=== PATIENT | male | born 1935 | race Caucasian/White ===

== ENCOUNTER 2018-09-04 15:28 | Emergency (ER) | payer OTHER ==
[~2018-09-04] VITALS: Ht 175.3 cm; Wt 79.4 kg
[~2018-09-04 15:28] MED LIST: ATOR10 PO; DILT120 PO; DOXA2 PO; LISI20 PO; LISI5 PO; PRIM50 PO; SIMV5 PO
[2018-09-04] MEDS ORDERED: HYDCHL12.5 PO (15:39)
[2018-09-04] MEDS ORDERED: DOXA2 PO (15:40)
[2018-09-04] MEDS ORDERED: GLUC500 PO (15:40)
[2018-09-04] MEDS ORDERED: UBID10 (15:40)
[2018-09-04 16:22] LABS: BASOPHILS ABSOLUTE AUTO 0.04 K/mm3 (0.00-0.23); BASOPHILS PERCENT AUTO 1 % (0-2); EOSINOPHILS ABSOLUTE AUTO 0.19 K/mm3 (0.00-0.68); EOSINOPHILS PERCENT AUTO 4 % (0-6); Hematocrit 37.8 % (37.0-53.0); Hemoglobin 12.9 g/dL (13.5-17.5); IMMATURE GRAN ABSOLUTE AUTO 0.01 K/mm3 (0.00-0.10); IMMATURE GRAN PERCENT AUTO 0 % (0-1); LYMPHOCYTES ABSOLUTE AUTO 1.28 K/mm3 (0.84-5.20); LYMPHOCYTES PERCENT AUTO 27 % (21-46); MONOCYTES ABSOLUTE AUTO 0.46 K/mm3 (0.16-1.47); MONOCYTES PERCENT AUTO 10 % (4-13); Mean Corpuscular HGB 31.9 pg (26.0-34.0); Mean Corpuscular HGB Conc 34.1 g/dL (31.5-36.5); Mean Corpuscular Volume 94 fL (80-100); Mean Platelet Volume 9.9 fL (9.1-12.4); NEUTROPHILS ABSOLUTE AUTO 2.69 K/mm3 (1.96-9.15); NEUTROPHILS PERCENT AUTO 58 % (41-73); Platelet Count 175 K/mm3 (150-400); RDW Coefficient Variation 12.8 % (11.7-14.2); RDW Standard Deviation 43.7 fL (35.1-46.3); Red Blood Cell Count 4.04 M/mm3 (4.30-5.90); White Blood Cell Count 4.67 K/mm3 (4.00-11.30)
[2018-09-04 16:47] LABS: Alanine Aminotransfer (ALT/SGP 28 U/L (12-78); Albumin, Blood 3.9 g/dL (3.4-5.0); Albumin/Globulin Ratio 1.3 (0.8-1.8); Alk Phos 56 U/L (50-136); Anion Gap 6 mmol/L (6-16); Aspartate Aminotrans (AST/SGOT 23 U/L (12-37); Bilirubin, Total 0.4 mg/dL (0.1-1.0); Blood Urea Nitrogen 13 mg/dL (8-24); Bun/Creatinine Ratio 15.2 (12.0-20.0); CO2, Blood 31 mmol/L (21-32); Calcium, Blood 8.1 mg/dL (8.5-10.1); Chloride, Blood 101 mmol/L (98-108); Creatinine, Blood 0.86 mg/dL (0.60-1.20); Globulin, Blood 3.1 g/dL (2.2-4.0); Glomerular Filtration Rate >60 (60-); Glucose, Blood 95 mg/dL (70-99); Potassium, Blood 3.5 mmol/L (3.5-5.5); Sodium, Blood 138 mmol/L (136-145)
[2018-09-04 16:53] LABS: Troponin I <0.015 ng/mL (0.000-0.040)
== END 2018-09-04 18:51 | disposition home or self-care (01) ==
LOC: ER 15:28
PROVIDERS: Physician Assistant
DX: R00.2 Palpitations (principal); I10 Essential (primary) hypertension; E78.00 Pure hypercholesterolemia, unspecified; Z79.899 Other long term (current) drug therapy
CPT/HCPCS: 36415; 80053; 84443; 84484; 85025; 93005; 93010; 96360; 99285-25; J7030

== ENCOUNTER → 2020-04-26 | Outpatient (CLI) | payer OTHER ==
[~2020-04-26] MED LIST changes: +ACET120S PR; +DILT60 PO; +GLUC500 PO; +HYDCHL12.5 PO; +UBID10
== END | disposition home or self-care (01) ==
LOC: PLD 15:21 → LAB SHORT 15:21
DX: C44.319 Basal cell carcinoma of skin of other parts of face (principal)
CPT/HCPCS: 88305

== ENCOUNTER → 2020-05-30 | Outpatient (CLI) | payer OTHER | END | disposition home or self-care (01) | LOC: LAB SHORT 10:31 → PLD 10:31 | DX: C44.319 Basal cell carcinoma of skin of other parts of face (principal) | CPT/HCPCS: 88305 ==

== ENCOUNTER → 2021-12-04 | Outpatient (CLI) | payer OTHER | END | disposition home or self-care (01) | LOC: PLD 11:15 → LAB SHORT 11:15 | DX: L82.1 Other seborrheic keratosis (principal) | CPT/HCPCS: 88305 ==

== ENCOUNTER 2022-01-20 14:32 | Emergency (ER) | payer OTHER ==
[~2022-01-20] VITALS: Ht 177.8 cm; Wt 86.2 kg
[2022-01-20] MEDS ORDERED: ERYT.5TO RIGHTEYE (15:42)
== END 2022-01-20 15:49 | disposition home or self-care (01) ==
LOC: ER 14:32
DX: H02.002 Unspecified entropion of right lower eyelid (principal); I10 Essential (primary) hypertension; Z79.899 Other long term (current) drug therapy
CPT/HCPCS: A9270

== ENCOUNTER 2022-07-26 14:20 | Emergency (ER) | payer OTHER ==
[~2022-07-26] VITALS: Ht 175.3 cm; Wt 86.2 kg
[~2022-07-26 14:20] MED LIST changes: +ERYT.5TO RIGHTEYE; +PRIM250 PO
[2022-07-26 14:42] LABS: BASOPHILS ABSOLUTE AUTO 0.02 K/mm3 (0.00-0.23); BASOPHILS PERCENT AUTO 0 % (0-2); EOSINOPHILS PERCENT AUTO 0 % (0-6); Hematocrit 32.3 % (37.0-53.0); Hemoglobin 11.6 g/dL (13.5-17.5); IMMATURE GRAN ABSOLUTE AUTO 0.05 K/mm3 (0.00-0.10); IMMATURE GRAN PERCENT AUTO 0 % (0-1); LYMPHOCYTES ABSOLUTE AUTO 0.74 K/mm3 (0.84-5.20); LYMPHOCYTES PERCENT AUTO 7 % (21-46); MONOCYTES ABSOLUTE AUTO 0.88 K/mm3 (0.16-1.47); MONOCYTES PERCENT AUTO 8 % (4-13); Mean Corpuscular HGB 33.3 pg (26.0-34.0); Mean Corpuscular HGB Conc 35.9 g/dL (31.5-36.5); Mean Corpuscular Volume 93 fL (80-100); Mean Platelet Volume 9.2 fL (9.1-12.4); NEUTROPHILS PERCENT AUTO 85 % (41-73); Platelet Count 147 K/mm3 (150-400); RDW Coefficient Variation 13.1 % (11.7-14.2); RDW Standard Deviation 44.4 fL (35.1-46.3); Red Blood Cell Count 3.48 M/mm3 (4.30-5.90); White Blood Cell Count 11.19 K/mm3 (4.00-11.30)
[2022-07-26 15:17] LABS: Albumin, Blood 3.4 g/dL (3.4-5.0); Albumin/Globulin Ratio 0.9 (0.8-1.8); Bilirubin, Total 0.7 mg/dL (0.1-1.0); Bun/Creatinine Ratio 20.8 (12.0-20.0); Calcium, Blood 8.1 mg/dL (8.5-10.1); Creatinine, Blood 1.06 mg/dL (0.60-1.20); Globulin, Blood 3.6 g/dL (2.2-4.0); Magnesium, Blood 1.9 mg/dL (1.6-2.4); Potassium, Blood 3.4 mmol/L (3.5-5.5)
[2022-07-26 15:19] LABS: Influenza A, PCR NEGATIVE (NEGATIVE); Influenza B, PCR NEGATIVE (NEGATIVE); Resp Syncytial Virus, PCR NEGATIVE (NEGATIVE); SARS-Cov-2 (COVID-19) PCR, MMC NEGATIVE (NEGATIVE)
[2022-07-26] MEDS ORDERED: DOXAZOSIN MESYLA2 MG PO (15:43)
[2022-07-26] MEDS ORDERED: ATOR10 PO (15:44)
[2022-07-26] MEDS ORDERED: EUTHYROX88 MC1 PO (15:44)
[2022-07-26] MEDS ORDERED: HYDCHL25 PO (15:45)
[2022-07-26] MEDS ORDERED: Amiodarone HCl200 MG PO (16:45)
[2022-07-26] MEDS ORDERED: ELIQUIS5 M3 PO (16:46)
[2022-07-26] MEDS ORDERED: CEFD300 PO (17:54)
[2022-07-26] MEDS ORDERED: Zithromax250 MG PO (17:54)
[2022-07-26 18:07] LABS: Source, Urine Clean Catch
[2022-07-26 18:12] LABS: Appearance, Urine Hazy (Clear); Bilirubin, Urine Neg (Neg); Blood, Urine 3+ (Neg); Color, Urine Amber (P-Yellow); Glucose Qualitative, Urine Neg (Neg); Ketones, Urine Neg (Neg); Leukocyte Esterase, Urine 1+ (Neg); Nitrite, Urine Neg (Neg); Protein, Urine 3+ (Neg); Specific Gravity, Urine 1.025 (1.003-1.022); Urobilinogen, Urine NORM (Normal)
[2022-07-26 18:24] LABS: Amorphous Light (0-Heavy); Bacteria Many /hpf; Mucus Mod (0-Heavy); Red Blood Cells, Urine 0-2 /hpf (0-2); Squamous Epithelial Cells Rare /hpf (Few); Transitional Epithelial Cells Rare /hpf (0-Rare)
== END 2022-07-26 19:06 | disposition home or self-care (01) ==
LOC: ER 14:20
PROVIDERS: Emergency Medicine; Physician Assistant
DX: J18.9 Pneumonia, unspecified organism (principal); Z20.822 Contact with and (suspected) exposure to COVID-19; I10 Essential (primary) hypertension; E11.9 Type 2 diabetes mellitus without complications; E78.00 Pure hypercholesterolemia, unspecified; Z79.899 Other long term (current) drug therapy
CPT/HCPCS: 0241U; 36415; 71046; 80053; 81001; 83605; 83735; 85025; A9270; J0456; J0696; J7030; J7050

== ENCOUNTER 2022-07-27 08:48 | Inpatient (IN) | payer OTHER ==
[~2022-07-27] VITALS: Ht 180.3 cm; Wt 89.5 kg
[~2022-07-27 08:48] MED LIST changes: +Amiodarone HCl200 MG PO; +CEFD300 PO; +DOXAZOSIN MESYLA2 MG PO; +ELIQUIS5 M3 PO; +EUTHYROX88 MC1 PO; +HYDCHL25 PO; +Zithromax250 MG PO
[2022-07-27 09:42] LABS: BASOPHILS ABSOLUTE AUTO 0.02 K/mm3 (0.00-0.23); BASOPHILS PERCENT AUTO 0 % (0-2); EOSINOPHILS PERCENT AUTO 0 % (0-6); Hematocrit 32.7 % (37.0-53.0); Hemoglobin 11.7 g/dL (13.5-17.5); IMMATURE GRAN ABSOLUTE AUTO 0.05 K/mm3 (0.00-0.10); IMMATURE GRAN PERCENT AUTO 1 % (0-1); LYMPHOCYTES ABSOLUTE AUTO 0.46 K/mm3 (0.84-5.20); LYMPHOCYTES PERCENT AUTO 5 % (21-46); MONOCYTES ABSOLUTE AUTO 0.57 K/mm3 (0.16-1.47); MONOCYTES PERCENT AUTO 6 % (4-13); Mean Corpuscular HGB 33.1 pg (26.0-34.0); Mean Corpuscular HGB Conc 35.8 g/dL (31.5-36.5); Mean Corpuscular Volume 93 fL (80-100); Mean Platelet Volume 9.6 fL (9.1-12.4); NEUTROPHILS PERCENT AUTO 89 % (41-73); Platelet Count 146 K/mm3 (150-400); RDW Coefficient Variation 13.2 % (11.7-14.2); RDW Standard Deviation 44.7 fL (35.1-46.3); Red Blood Cell Count 3.53 M/mm3 (4.30-5.90)
[2022-07-27 09:56] LABS: Albumin, Blood 3.1 g/dL (3.4-5.0); Albumin/Globulin Ratio 0.8 (0.8-1.8); Bilirubin, Total 0.6 mg/dL (0.1-1.0); Calcium, Blood 8.1 mg/dL (8.5-10.1); Creatinine, Blood 1.23 mg/dL (0.60-1.20); Globulin, Blood 3.7 g/dL (2.2-4.0); Potassium, Blood 2.9 mmol/L (3.5-5.5); Total Protein, Blood 6.8 g/dL (6.4-8.2)
--- NOTE | 2022-07-27 16:41 | NUR ---
PT ARRIVED TO THE MEDICAL FLOOR FROM THE ER VIA GURNEY. PT IS SLEEY AND DIFICULT TO AROUSE. PT IS ON 2L/MIN O2 VIA NC, VSS. PT ORIENTED TO THE CALL SYSTEM. CALL LIGHT IN REACH. WILL CONTINUE TO MONITOR AND ASSESS FOR CHANGES
[2022-07-27 17:46] LABS: Vancomycin, Trough <0.8 ug/mL (5.0-10.0)
--- NOTE | 2022-07-27 19:46 | NUR ---
PT IS MORE ALERT THIS EVENING COMPARED TO WHEN HE FIRST CAME TO THE FLOOR. PT APPEARS TO BE BREATHING EASILY ON O2 @ 2L/MIN. PT DENIES ANY PAIN, N/V OR SOB AT THIS TIME. PT IS VERY SHAKEY AND REPORTED THAT HE HAS NOT TAKEN HIS SCHEDULED PRIMIDONE SINCE BEING SICK. CALL LIGHT IN REACH. VSS
--- NOTE | 2022-07-28 04:30 | NUR ---
SHIFT SUMMARY NO ACUTE CHANGES TO REPORT OVERNIGHT, IV ANTIBIOTICS CONTINUED FOR PNA. HE HAS RESTED WELL OVERNIGHT. NO COMPLAINTS OF ANY PAIN, NO N/V. PT A/OX4 AND CALLS APPROPRIATELY. IVF INFUSING ORDERED, VITALS STABLE. BED IN LOWEST POSITION, CALL LIGHT WITHIN REACH.
[2022-07-28 05:33] LABS: BASOPHILS ABSOLUTE AUTO 0.01 K/mm3 (0.00-0.23); BASOPHILS PERCENT AUTO 0 % (0-2); EOSINOPHILS PERCENT AUTO 0 % (0-6); IMMATURE GRAN ABSOLUTE AUTO 0.03 K/mm3 (0.00-0.10); IMMATURE GRAN PERCENT AUTO 0 % (0-1); LYMPHOCYTES ABSOLUTE AUTO 0.42 K/mm3 (0.84-5.20); LYMPHOCYTES PERCENT AUTO 6 % (21-46); MONOCYTES PERCENT AUTO 6 % (4-13); Mean Corpuscular HGB 33.6 pg (26.0-34.0); Mean Corpuscular HGB Conc 35.5 g/dL (31.5-36.5); Mean Corpuscular Volume 95 fL (80-100); Mean Platelet Volume 9.8 fL (9.1-12.4); NEUTROPHILS ABSOLUTE AUTO 6.07 K/mm3 (1.96-9.15); NEUTROPHILS PERCENT AUTO 88 % (41-73); Platelet Count 128 K/mm3 (150-400); RDW Coefficient Variation 13.2 % (11.7-14.2); RDW Standard Deviation 46.9 fL (35.1-46.3); Red Blood Cell Count 3.27 M/mm3 (4.30-5.90); White Blood Cell Count 6.93 K/mm3 (4.00-11.30)
[2022-07-28 06:01] LABS: Albumin, Blood 2.5 g/dL (3.4-5.0); Albumin/Globulin Ratio 0.7 (0.8-1.8); Bilirubin, Total 0.4 mg/dL (0.1-1.0); Calcium, Blood 7.5 mg/dL (8.5-10.1); Creatinine, Blood 1.29 mg/dL (0.60-1.20); Globulin, Blood 3.4 g/dL (2.2-4.0); Magnesium, Blood 2.2 mg/dL (1.6-2.4); Potassium, Blood 4.3 mmol/L (3.5-5.5); Total Protein, Blood 5.9 g/dL (6.4-8.2)
[2022-07-28] MEDS ORDERED: Flonase 0.05% N16 GM (07:00)
--- NOTE | 2022-07-28 19:22 | NUR ---
PT IS A/OX4, PLEASANT AND COOPERATIVE. PT IS UP WITH MINIMAL ASSIST TO THE BATHROOM. PT WAS OFFERED ASSISTANCE UP TO THE CHAIR BUT DECLINED AND JUST WANTED TO REST TODAY. PT IS ON O2 @ 2L/MIN VIA NC. PT BECAME SOB WITH ACTIVITY AND DESAT'S. PT DENIED ANY PAIN TODAY. PT HAS A LOOSE COUGH. CALL LIGHT IN REACH. VSS
--- NOTE | 2022-07-29 03:23 | NUR ---
Patient resting in room, no complaints of pain or discomfort.
[2022-07-29 05:28] LABS: BASOPHILS PERCENT AUTO 0 % (0-2); EOSINOPHILS ABSOLUTE AUTO 0.01 K/mm3 (0.00-0.68); EOSINOPHILS PERCENT AUTO 0 % (0-6); Hematocrit 31.5 % (37.0-53.0); Hemoglobin 11.1 g/dL (13.5-17.5); IMMATURE GRAN ABSOLUTE AUTO 0.03 K/mm3 (0.00-0.10); IMMATURE GRAN PERCENT AUTO 0 % (0-1); LYMPHOCYTES ABSOLUTE AUTO 0.54 K/mm3 (0.84-5.20); LYMPHOCYTES PERCENT AUTO 7 % (21-46); MONOCYTES ABSOLUTE AUTO 0.77 K/mm3 (0.16-1.47); MONOCYTES PERCENT AUTO 10 % (4-13); Mean Corpuscular HGB 32.7 pg (26.0-34.0); Mean Corpuscular HGB Conc 35.2 g/dL (31.5-36.5); Mean Corpuscular Volume 93 fL (80-100); Mean Platelet Volume 9.3 fL (9.1-12.4); NEUTROPHILS ABSOLUTE AUTO 6.32 K/mm3 (1.96-9.15); NEUTROPHILS PERCENT AUTO 83 % (41-73); Platelet Count 145 K/mm3 (150-400); RDW Coefficient Variation 13.1 % (11.7-14.2); RDW Standard Deviation 44.6 fL (35.1-46.3); Red Blood Cell Count 3.39 M/mm3 (4.30-5.90); White Blood Cell Count 7.67 K/mm3 (4.00-11.30)
[2022-07-29 05:51] LABS: Albumin, Blood 2.4 g/dL (3.4-5.0); Albumin/Globulin Ratio 0.7 (0.8-1.8); Bilirubin, Total 0.4 mg/dL (0.1-1.0); Bun/Creatinine Ratio 22.9 (12.0-20.0); Calcium, Blood 7.5 mg/dL (8.5-10.1); Creatinine, Blood 1.09 mg/dL (0.60-1.20); Globulin, Blood 3.4 g/dL (2.2-4.0); Potassium, Blood 3.8 mmol/L (3.5-5.5); Total Protein, Blood 5.8 g/dL (6.4-8.2)
--- NOTE | 2022-07-29 17:16 | NUR ---
PT IS A/OX4, PLEASANT AND COOPERATIVE. THE PT IS UP WITH MINIMAL ASSIST. THE PT WAS UP TO THE SHOWER TODAY AND SAT IN THE CHAIR AT THE BEDSIDE FOR SEVERAL HOURS. PT IS ON O2 @ 4L/MIN, SAT'S > 90%. PT HAS LOOSE CONSISTANT COUGH. PT DENIED ANY PAIN T/O THE SHIFT. CALL LIGHT IN REACH. WILL CONTINUE TO MONITOR AND ASSESS FOR CHANGES
[2022-07-29 18:02] LABS: Vancomycin, Trough 9.3 ug/mL (5.0-10.0)
--- NOTE | 2022-07-30 03:27 | NUR ---
Patient resting in bed, no complaints of pain or discomfort.
[2022-07-30 05:47] LABS: BASOPHILS ABSOLUTE AUTO 0.02 K/mm3 (0.00-0.23); BASOPHILS PERCENT AUTO 0 % (0-2); EOSINOPHILS ABSOLUTE AUTO 0.24 K/mm3 (0.00-0.68); EOSINOPHILS PERCENT AUTO 4 % (0-6); Hematocrit 28.4 % (37.0-53.0); Hemoglobin 10.2 g/dL (13.5-17.5); IMMATURE GRAN ABSOLUTE AUTO 0.03 K/mm3 (0.00-0.10); IMMATURE GRAN PERCENT AUTO 1 % (0-1); LYMPHOCYTES ABSOLUTE AUTO 0.71 K/mm3 (0.84-5.20); LYMPHOCYTES PERCENT AUTO 11 % (21-46); MONOCYTES ABSOLUTE AUTO 0.83 K/mm3 (0.16-1.47); MONOCYTES PERCENT AUTO 13 % (4-13); Mean Corpuscular HGB Conc 35.9 g/dL (31.5-36.5); Mean Corpuscular Volume 92 fL (80-100); Mean Platelet Volume 9.2 fL (9.1-12.4); NEUTROPHILS ABSOLUTE AUTO 4.51 K/mm3 (1.96-9.15); NEUTROPHILS PERCENT AUTO 71 % (41-73); Platelet Count 155 K/mm3 (150-400); RDW Coefficient Variation 13.1 % (11.7-14.2); RDW Standard Deviation 43.9 fL (35.1-46.3); Red Blood Cell Count 3.09 M/mm3 (4.30-5.90); White Blood Cell Count 6.34 K/mm3 (4.00-11.30)
[2022-07-30 06:10] LABS: Albumin, Blood 2.3 g/dL (3.4-5.0); Albumin/Globulin Ratio 0.7 (0.8-1.8); Bilirubin, Total 0.4 mg/dL (0.1-1.0); Bun/Creatinine Ratio 19.5 (12.0-20.0); Calcium, Blood 7.5 mg/dL (8.5-10.1); Creatinine, Blood 1.28 mg/dL (0.60-1.20); Globulin, Blood 3.2 g/dL (2.2-4.0); Potassium, Blood 3.4 mmol/L (3.5-5.5); Total Protein, Blood 5.5 g/dL (6.4-8.2)
--- NOTE | 2022-07-30 18:38 | NUR ---
NO ACUTE CHANGES THIS SHIFT. PATIENT A/OX4, UP WITH FWW AND SBA TO RESTROOM. CONTINENT OF URINE/STOOL. IV TO L FA WNL AND SL. TOLERATING DIET. DENIES ANY PAIN OR DISCOMFORT. VSS, ON 4LO2 VIA NC. WORKED WITH PT/OT TODAY AND THEY ARE RECOMMENDING HOME WITH HOME HEALTH. NO NEW CONCERNS TODAY.
[2022-07-31 06:32] LABS: BASOPHILS ABSOLUTE AUTO 0.04 K/mm3 (0.00-0.23); BASOPHILS PERCENT AUTO 1 % (0-2); EOSINOPHILS ABSOLUTE AUTO 0.28 K/mm3 (0.00-0.68); EOSINOPHILS PERCENT AUTO 4 % (0-6); Hematocrit 27.8 % (37.0-53.0); Hemoglobin 9.8 g/dL (13.5-17.5); IMMATURE GRAN ABSOLUTE AUTO 0.05 K/mm3 (0.00-0.10); IMMATURE GRAN PERCENT AUTO 1 % (0-1); LYMPHOCYTES ABSOLUTE AUTO 0.66 K/mm3 (0.84-5.20); LYMPHOCYTES PERCENT AUTO 10 % (21-46); MONOCYTES ABSOLUTE AUTO 0.71 K/mm3 (0.16-1.47); MONOCYTES PERCENT AUTO 11 % (4-13); Mean Corpuscular HGB 32.7 pg (26.0-34.0); Mean Corpuscular HGB Conc 35.3 g/dL (31.5-36.5); Mean Corpuscular Volume 93 fL (80-100); Mean Platelet Volume 9.6 fL (9.1-12.4); NEUTROPHILS ABSOLUTE AUTO 4.84 K/mm3 (1.96-9.15); NEUTROPHILS PERCENT AUTO 74 % (41-73); Platelet Count 187 K/mm3 (150-400); RDW Coefficient Variation 13.2 % (11.7-14.2); RDW Standard Deviation 45.5 fL (35.1-46.3); White Blood Cell Count 6.58 K/mm3 (4.00-11.30)
--- NOTE | 2022-07-31 06:46 | NUR ---
SHIFT SUMMARY: A&OX4. COOPERATIVE, ABLE TO FOLLOW DIRECTIONS, AND MAKE NEEDS KNOWN. O2 SATS > 92% ON 2 LPM. DENIES ANY SOB OR CHEST PAIN. VOIDING CLEAR, YELLOW URINE WIHTOUT DIFFICULTY. SLEPT MAJORITY OF NIGHT. NO ACUTE CHANGES.
[2022-07-31 06:56] LABS: Bun/Creatinine Ratio 17.6 (12.0-20.0); Calcium, Blood 7.8 mg/dL (8.5-10.1); Creatinine, Blood 1.48 mg/dL (0.60-1.20); Potassium, Blood 3.5 mmol/L (3.5-5.5)
--- NOTE | 2022-07-31 16:35 | NUR ---
Upon rreceiving a referral for spiritual care, I visit patient. Pt immediately tells me about his 6 falls, how he thought he might and that he was at peace with . He talks about his Jewish Chist[employer] rosalina and how it is meaningful to him and how his late was a huge force in helping him connect to GOd. He explains that his ex- prior to his late called him and asked if she could live with him (at least during the winter because of her health issues) and he agreed to this. She is the one who called [phone]- for him. He sharesa bout his 4 grown children and where they live and do for a living. I listen empathically, normalize his experience and provide gentle mental health counselor and prayer. Pt responds well and voices great appreciation for the visit. I will continue to remain available to patient and family.
--- NOTE | 2022-07-31 18:02 | NUR ---
PATIENT A/OX4, UP WITH FWW AND SBA TO RESTROOM. DENIES ANY PAIN TODAY. DID REPORT POOR APPETITE AND NAUSEA, ZOFRAN GIVEN X1 TO TREAT. REMAINS ON 4LO2 VIA NC. PLEASANT AND COOPERATIVE WITH CARE, ABLE TO MAKE NEEDS KNOWN. NO NEW CONCERNS THIS SHIFT.
--- NOTE | 2022-08-01 04:29 | NUR ---
SHIFT SUMMARY 87 YR M ADMITTED ON 07/27/22 FOR PNEUMONIA/WEAKNESS. FULL CODE. NO ACUTE CHANGES THIS SHIFT. PT IS USING URINAL INDEPENDANTLY AND CALLING APPROPRIATELY TO HAVE IT EMPTIED. HE WAS UP IN THE CHAIR AT BEGINNING OF SHIFT AND ATE MOST OF HIS DINNER. NO C/O NAUSEA OR PAIN THIS SHIFT. HE STATES HE IS FEELING BETTER BUT IS STILL FEELING SOME WEAKNESS.
[2022-08-01 05:13] LABS: BASOPHILS ABSOLUTE AUTO 0.03 K/mm3 (0.00-0.23); BASOPHILS PERCENT AUTO 1 % (0-2); EOSINOPHILS ABSOLUTE AUTO 0.35 K/mm3 (0.00-0.68); EOSINOPHILS PERCENT AUTO 6 % (0-6); Hematocrit 26.5 % (37.0-53.0); Hemoglobin 9.3 g/dL (13.5-17.5); IMMATURE GRAN ABSOLUTE AUTO 0.05 K/mm3 (0.00-0.10); IMMATURE GRAN PERCENT AUTO 1 % (0-1); LYMPHOCYTES PERCENT AUTO 10 % (21-46); MONOCYTES ABSOLUTE AUTO 0.72 K/mm3 (0.16-1.47); MONOCYTES PERCENT AUTO 12 % (4-13); Mean Corpuscular HGB 32.4 pg (26.0-34.0); Mean Corpuscular HGB Conc 35.1 g/dL (31.5-36.5); Mean Corpuscular Volume 92 fL (80-100); Mean Platelet Volume 9.2 fL (9.1-12.4); NEUTROPHILS ABSOLUTE AUTO 4.28 K/mm3 (1.96-9.15); NEUTROPHILS PERCENT AUTO 71 % (41-73); Platelet Count 215 K/mm3 (150-400); RDW Coefficient Variation 13.4 % (11.7-14.2); RDW Standard Deviation 46.1 fL (35.1-46.3); Red Blood Cell Count 2.87 M/mm3 (4.30-5.90); White Blood Cell Count 6.03 K/mm3 (4.00-11.30)
[2022-08-01 05:35] LABS: Bun/Creatinine Ratio 16.6 (12.0-20.0); Calcium, Blood 7.8 mg/dL (8.5-10.1); Creatinine, Blood 1.51 mg/dL (0.60-1.20)
--- NOTE | 2022-08-01 17:56 | NUR ---
DAY SHIFT SUMMARY PT ORIENTED X4, CALM AND COOPERATIVE. ABLE TO MAKE NEEDS KNOWN. DENIES PAIN OR DISCOMFORT. TREMORS IN UE AT BASELINE. ON 2-4L O2, HOME O2 EVAL COMPLETE. SEE RT NOTE FOR DETAILS. EXPECTED D/C TOMORROW AND WILL NEED ARRANGEMENTS FOR TRANSPORTATION PT STATES DOES NOT DRIVE. VSS. VOIDING ADEQUATELY. WILL PASS ON TO NOC SHIFT.
--- NOTE | 2022-08-02 05:31 | NUR ---
SHIFT SUMMARY A&O X4. VSS. NO COMPLAINTS OF PAIN. VERY [place]. USES URINAL AT BEDSIDE. SLEPT WELL THROUGH THE NIGHT. DC IN AM AND WILL NEED TRANSPORTATION TO HOME.
[2022-08-02 06:48] LABS: BASOPHILS ABSOLUTE AUTO 0.03 K/mm3 (0.00-0.23); BASOPHILS PERCENT AUTO 1 % (0-2); EOSINOPHILS ABSOLUTE AUTO 0.36 K/mm3 (0.00-0.68); EOSINOPHILS PERCENT AUTO 6 % (0-6); Hematocrit 27.9 % (37.0-53.0); Hemoglobin 9.7 g/dL (13.5-17.5); IMMATURE GRAN ABSOLUTE AUTO 0.07 K/mm3 (0.00-0.10); IMMATURE GRAN PERCENT AUTO 1 % (0-1); LYMPHOCYTES ABSOLUTE AUTO 0.62 K/mm3 (0.84-5.20); LYMPHOCYTES PERCENT AUTO 10 % (21-46); MONOCYTES ABSOLUTE AUTO 0.84 K/mm3 (0.16-1.47); MONOCYTES PERCENT AUTO 13 % (4-13); Mean Corpuscular HGB 32.4 pg (26.0-34.0); Mean Corpuscular HGB Conc 34.8 g/dL (31.5-36.5); Mean Corpuscular Volume 93 fL (80-100); NEUTROPHILS ABSOLUTE AUTO 4.45 K/mm3 (1.96-9.15); NEUTROPHILS PERCENT AUTO 70 % (41-73); Platelet Count 298 K/mm3 (150-400); RDW Coefficient Variation 13.5 % (11.7-14.2); RDW Standard Deviation 46.5 fL (35.1-46.3); Red Blood Cell Count 2.99 M/mm3 (4.30-5.90); White Blood Cell Count 6.37 K/mm3 (4.00-11.30)
[2022-08-02 07:05] LABS: Bun/Creatinine Ratio 16.6 (12.0-20.0); Creatinine, Blood 1.45 mg/dL (0.60-1.20); Potassium, Blood 4.1 mmol/L (3.5-5.5)
--- NOTE | 2022-08-02 17:26 | NUR ---
PT QUITE PLEASANT TODAY.. SAT IN CHAIR MUCH OF DAY. AMBULATED TO BATHROOM TODAY. STATES FEELS SOME BETTER. NO NEW CONCERNS NOTED TODAY. RED BUMPS ON PT BACK HAVE BEEN SEEN BY DR RILEY. EXPECTS IS RASH FROM BED. NO NEW ORDRES. BED IN LOW POSITION, CALL LITE IN REACH, CALLSAPPROP
[2022-08-02 17:50] LABS: Vancomycin, Trough 2.4 ug/mL (5.0-10.0)
--- NOTE | 2022-08-03 05:18 | NUR ---
SHIFT SUMMARY ALERT AND ORIENTED X4. VSS. NO COMPLAINTS OF PAIN. USES URINAL AT BEDSIDE. BED ALARM ON. PT POSSIBLE DISCHARGE IN THE AM TO HOME WITH HOME HEALTH. NEEDS TRANSPORT TO HOME. PT'S SPOUSE DOES NOT DRIVE. WILL PASS INFO TO DAYSHIFT RN.
[2022-08-03 06:32] LABS: BASOPHILS ABSOLUTE AUTO 0.05 K/mm3 (0.00-0.23); BASOPHILS PERCENT AUTO 1 % (0-2); EOSINOPHILS ABSOLUTE AUTO 0.29 K/mm3 (0.00-0.68); EOSINOPHILS PERCENT AUTO 5 % (0-6); Hematocrit 26.8 % (37.0-53.0); Hemoglobin 9.5 g/dL (13.5-17.5); IMMATURE GRAN PERCENT AUTO 2 % (0-1); LYMPHOCYTES ABSOLUTE AUTO 0.73 K/mm3 (0.84-5.20); LYMPHOCYTES PERCENT AUTO 12 % (21-46); MONOCYTES ABSOLUTE AUTO 0.84 K/mm3 (0.16-1.47); MONOCYTES PERCENT AUTO 14 % (4-13); Mean Corpuscular HGB Conc 35.4 g/dL (31.5-36.5); Mean Corpuscular Volume 93 fL (80-100); Mean Platelet Volume 8.7 fL (9.1-12.4); NEUTROPHILS PERCENT AUTO 66 % (41-73); Platelet Count 330 K/mm3 (150-400); RDW Coefficient Variation 13.5 % (11.7-14.2); RDW Standard Deviation 46.8 fL (35.1-46.3); Red Blood Cell Count 2.88 M/mm3 (4.30-5.90); White Blood Cell Count 5.91 K/mm3 (4.00-11.30)
[2022-08-03 07:44] LABS: Bun/Creatinine Ratio 18.4 (12.0-20.0); Calcium, Blood 7.8 mg/dL (8.5-10.1); Creatinine, Blood 1.52 mg/dL (0.60-1.20); Potassium, Blood 4.2 mmol/L (3.5-5.5)
--- NOTE | 2022-08-03 10:34 | NUR ---
0900 PT O2 AT 4L. TURNED DOWN TO 3L, REMAINS AT 94-96% 1000 PT O2 AT 3L. TURNED DOWN TO 2L, REMAINS AT 94-96% 1030 DR PRITCHETT IN ROOM, WE TURNED OFF O2, MAINTAINING >93% SITTING IN CHAIR.. STATES PLAN TO D/C AND REQUEST HOME O2 EVAL.
--- NOTE | 2022-08-03 10:56 | NUR ---
RECHECK O2. R/A IS 96%. TALKING ON PHONE.
[2022-08-03] MEDS ORDERED: CEFD300 PO (11:35)
[2022-08-03] MEDS ORDERED: FURO20 PO (11:36)
[2022-08-03] MEDS ORDERED: SULFAMETHOXAZO1 EAC1 PO (11:36)
--- NOTE | 2022-08-03 14:50 | NUR ---
iv pulled intact. no tele. discharge reviewed with pt he verbalized understanding meds and inst. family friend in to take him home [id number]. rod placer took pt to door in wheelchair.
== END 2022-08-03 14:50 | disposition home or self-care (01) | DRG 871 ==
LOC: ER 08:48 → MEDS 10:48
PROVIDERS: Emergency Medicine; Family Medicine; ADMIT Internal Medicine
PROC: 3E03329 Introduction of Other Anti-infective into Peripheral Vein, Percutaneous Approach (ICD-10-PCS; principal; 2022-07-27)
PROC: 5A09357 Assistance with Respiratory Ventilation, Less than 24 Consecutive Hours, Continuous Positive Airway Pressure (ICD-10-PCS; 2022-07-29)
DX: A41.9 Sepsis, unspecified organism (principal); G93.41 Metabolic encephalopathy; J96.01 Acute respiratory failure with hypoxia; J18.9 Pneumonia, unspecified organism; E87.1 Hypo-osmolality and hyponatremia; I24.8 Other forms of acute ischemic heart disease; N17.9 Acute kidney failure, unspecified; N40.0 Benign prostatic hyperplasia without lower urinary tract symptoms; I48.91 Unspecified atrial fibrillation; I25.10 Atherosclerotic heart disease of native coronary artery without angina pectoris; R29.6 Repeated falls; E78.00 Pure hypercholesterolemia, unspecified; I10 Essential (primary) hypertension; E87.6 Hypokalemia; E11.9 Type 2 diabetes mellitus without complications; E03.9 Hypothyroidism, unspecified; I71.21 Aneurysm of the ascending aorta, without rupture; L29.9 Pruritus, unspecified; L25.9 Unspecified contact dermatitis, unspecified cause; L73.9 Follicular disorder, unspecified; G25.0 Essential tremor; R21 Rash and other nonspecific skin eruption; W22.8XXA Striking against or struck by other objects, initial encounter; Z79.899 Other long term (current) drug therapy; Z79.01 Long term (current) use of anticoagulants; Z79.02 Long term (current) use of antithrombotics/antiplatelets; Z79.2 Long term (current) use of antibiotics; Z98.890 Other specified postprocedural states; Z85.828 Personal history of other malignant neoplasm of skin; Z79.52 Long term (current) use of systemic steroids
CPT/HCPCS: 36415; 70450; 71045; 71260; 80048; 80053; 80202; 83735; 83880; 84145; 84484; 85025; 87449; 93005; 93010; 94640; 94664; 94760; 94761; 96361; 96374; 97110; 97116; 97162; 97165; 97530; 97535; 99285-25; A9270; J0692; J0696; J1650; J1940; J3370; J3480; J7030; J7050; Q9967

== ENCOUNTER → 2023-09-19 | Outpatient (CLI) | payer OTHER ==
[~2023-09-19] MED LIST changes: +FURO20 PO; +Flonase 0.05% N16 GM; +SULFAMETHOXAZO1 EAC1 PO
== END ==
LOC: LAB SHORT 12:47 → LAB 12:47
DX: D48.5 Neoplasm of uncertain behavior of skin (principal)
CPT/HCPCS: 88305

== ENCOUNTER 2024-03-21 08:25 | Emergency (ER) | payer OTHER ==
[~2024-03-21] VITALS: Ht 177.8 cm; Wt 81.2 kg
[2024-03-21 09:27] LABS: BASOPHILS ABSOLUTE AUTO 0.04 K/mm3 (0.00-0.23); BASOPHILS PERCENT AUTO 1 % (0-2); EOSINOPHILS PERCENT AUTO 4 % (0-6); Hematocrit 36.2 % (37.0-53.0); Hemoglobin 12.6 g/dL (13.5-17.5); IMMATURE GRAN ABSOLUTE AUTO 0.01 K/mm3 (0.00-0.10); IMMATURE GRAN PERCENT AUTO 0 % (0-1); LYMPHOCYTES ABSOLUTE AUTO 1.27 K/mm3 (0.84-5.20); LYMPHOCYTES PERCENT AUTO 25 % (21-46); MONOCYTES ABSOLUTE AUTO 0.47 K/mm3 (0.16-1.47); MONOCYTES PERCENT AUTO 9 % (4-13); Mean Corpuscular HGB 32.9 pg (26.0-34.0); Mean Corpuscular HGB Conc 34.8 g/dL (31.5-36.5); Mean Corpuscular Volume 95 fL (80-100); Mean Platelet Volume 9.1 fL (9.1-12.4); NEUTROPHILS PERCENT AUTO 61 % (41-73); Platelet Count 220 K/mm3 (150-400); RDW Coefficient Variation 13.1 % (11.7-14.2); RDW Standard Deviation 45.1 fL (35.1-46.3); Red Blood Cell Count 3.83 M/mm3 (4.30-5.90); White Blood Cell Count 5.09 K/mm3 (4.00-11.30)
[2024-03-21 09:42] LABS: Albumin, Blood 3.9 g/dL (3.4-5.0); Albumin/Globulin Ratio 1.1 (0.8-1.8); Bilirubin, Total 0.5 mg/dL (0.1-1.0); Calcium, Blood 8.4 mg/dL (8.5-10.1); Creatinine, Blood 1.21 mg/dL (0.60-1.20); Globulin, Blood 3.4 g/dL (2.2-4.0); Total Protein, Blood 7.3 g/dL (6.4-8.2)
[2024-03-21] MEDS ORDERED: Ondansetron HCl 2 MG / ML 2ML Vial IV ONE (11:35)
[2024-03-21 11:42] LABS: Source, Urine Clean Catch
[2024-03-21 11:56] LABS: Appearance, Urine Clear (Clear); Bilirubin, Urine Neg (Neg); Blood, Urine Neg (Neg); Color, Urine Yellow (P-Yellow); Glucose Qualitative, Urine Neg (Neg); Ketones, Urine Neg (Neg); Leukocyte Esterase, Urine Neg (Neg); Nitrite, Urine Neg (Neg); Protein, Urine Neg (Neg); Urobilinogen, Urine NORM (Normal)
[2024-03-21 13:15] VITALS: BP 153/93
[2024-03-21] MEDS ORDERED: ACET500 PO (13:41)
[2024-03-21] MEDS ORDERED: ONDA4ODT MM (13:41)
[2024-03-21] MEDS ORDERED: MIRALAX17 GM PO (13:45)
[2024-03-21] MEDS ORDERED: SENNA LAXATIVE8.6 MG PO (13:45)
== END 2024-03-21 13:55 | disposition home or self-care (01) ==
LOC: ER 08:25
PROVIDERS: Emergency Medicine
DX: R10.84 Generalized abdominal pain (principal); R11.0 Nausea; I10 Essential (primary) hypertension
CPT/HCPCS: 74177; 80053; 81003; 83690; 83735; 85025; 96374-59; 99284-25; J2405; Q9967

== ENCOUNTER 2024-04-02 22:56 | Observation (INO) | payer OTHER ==
[~2024-04-02] VITALS: Ht 177.8 cm; Wt 81.7 kg
[~2024-04-02 22:56] MED LIST changes: +ACET500 PO; +MIRALAX17 GM PO; +ONDA4ODT MM; +SENNA LAXATIVE8.6 MG PO
[2024-04-02 23:21] LABS: BASOPHILS ABSOLUTE AUTO 0.05 K/mm3 (0.00-0.23); BASOPHILS PERCENT AUTO 1 % (0-2); EOSINOPHILS ABSOLUTE AUTO 0.17 K/mm3 (0.00-0.68); EOSINOPHILS PERCENT AUTO 2 % (0-6); Hematocrit 30.3 % (37.0-53.0); Hemoglobin 10.7 g/dL (13.5-17.5); IMMATURE GRAN ABSOLUTE AUTO 0.03 K/mm3 (0.00-0.10); IMMATURE GRAN PERCENT AUTO 0 % (0-1); LYMPHOCYTES ABSOLUTE AUTO 1.58 K/mm3 (0.84-5.20); LYMPHOCYTES PERCENT AUTO 20 % (21-46); MONOCYTES ABSOLUTE AUTO 0.73 K/mm3 (0.16-1.47); MONOCYTES PERCENT AUTO 9 % (4-13); Mean Corpuscular HGB 32.9 pg (26.0-34.0); Mean Corpuscular HGB Conc 35.3 g/dL (31.5-36.5); Mean Corpuscular Volume 93 fL (80-100); Mean Platelet Volume 8.9 fL (9.1-12.4); NEUTROPHILS ABSOLUTE AUTO 5.47 K/mm3 (1.96-9.15); NEUTROPHILS PERCENT AUTO 68 % (41-73); Platelet Count 175 K/mm3 (150-400); RDW Standard Deviation 44.6 fL (35.1-46.3); Red Blood Cell Count 3.25 M/mm3 (4.30-5.90); White Blood Cell Count 8.03 K/mm3 (4.00-11.30)
[2024-04-02] MEDS ORDERED: NS 1,000 ML IV SCH (23:35)
[2024-04-02] MEDS ORDERED: Ondansetron HCl 2 MG / ML 2ML Vial IV ONE (23:35)
[2024-04-02] MEDS ORDERED: FentaNYL Citrate 50 MCG/ML 2 ML Injection IV ONE (23:35)
[2024-04-02 23:46] LABS: Albumin, Blood 3.8 g/dL (3.4-5.0); Albumin/Globulin Ratio 1.2 (0.8-1.8); Bilirubin, Total 0.7 mg/dL (0.1-1.0); Bun/Creatinine Ratio 14.3 (12.0-20.0); Calcium, Blood 8.2 mg/dL (8.5-10.1); Creatinine, Blood 1.12 mg/dL (0.60-1.20); Globulin, Blood 3.2 g/dL (2.2-4.0); Potassium, Blood 3.5 mmol/L (3.5-5.5)
[2024-04-03 00:59] LABS: Source, Urine Straight Cath
[2024-04-03 01:07] LABS: Bilirubin, Urine Neg (Neg); Blood, Urine Neg (Neg); Glucose Qualitative, Urine Neg (Neg); Ketones, Urine Neg (Neg); Leukocyte Esterase, Urine Neg (Neg); Nitrite, Urine Neg (Neg); Protein, Urine 1+ (Neg); Specific Gravity, Urine 1.005 (1.003-1.022); Urobilinogen, Urine NORM (Normal)
[2024-04-03 01:26] LABS: Appearance, Urine Clear (Clear); Color, Urine Yellow (P-Yellow)
[2024-04-03] MEDS ORDERED: Magnesium Hydroxide Conc 10 ML UDC PO STA (02:26)
[2024-04-03] MEDS ORDERED: Lactulose 20 GM/30 ML UDC PO STA (02:27)
[2024-04-03 05:51] LABS: BASOPHILS ABSOLUTE AUTO 0.04 K/mm3 (0.00-0.23); BASOPHILS PERCENT AUTO 1 % (0-2); EOSINOPHILS ABSOLUTE AUTO 0.16 K/mm3 (0.00-0.68); EOSINOPHILS PERCENT AUTO 3 % (0-6); Hematocrit 26.7 % (37.0-53.0); Hemoglobin 9.2 g/dL (13.5-17.5); IMMATURE GRAN ABSOLUTE AUTO 0.01 K/mm3 (0.00-0.10); IMMATURE GRAN PERCENT AUTO 0 % (0-1); LYMPHOCYTES ABSOLUTE AUTO 1.08 K/mm3 (0.84-5.20); LYMPHOCYTES PERCENT AUTO 19 % (21-46); MONOCYTES ABSOLUTE AUTO 0.64 K/mm3 (0.16-1.47); MONOCYTES PERCENT AUTO 11 % (4-13); Mean Corpuscular HGB 32.5 pg (26.0-34.0); Mean Corpuscular HGB Conc 34.5 g/dL (31.5-36.5); Mean Corpuscular Volume 94 fL (80-100); Mean Platelet Volume 9.3 fL (9.1-12.4); NEUTROPHILS ABSOLUTE AUTO 3.81 K/mm3 (1.96-9.15); NEUTROPHILS PERCENT AUTO 66 % (41-73); Platelet Count 158 K/mm3 (150-400); RDW Coefficient Variation 12.9 % (11.7-14.2); RDW Standard Deviation 44.6 fL (35.1-46.3); Red Blood Cell Count 2.83 M/mm3 (4.30-5.90); White Blood Cell Count 5.74 K/mm3 (4.00-11.30)
[2024-04-03 06:22] LABS: Albumin, Blood 3.1 g/dL (3.4-5.0); Albumin/Globulin Ratio 1.1 (0.8-1.8); Bilirubin, Total 0.7 mg/dL (0.1-1.0); Bun/Creatinine Ratio 13.5 (12.0-20.0); Calcium, Blood 7.7 mg/dL (8.5-10.1); Creatinine, Blood 1.04 mg/dL (0.60-1.20); Globulin, Blood 2.9 g/dL (2.2-4.0); Potassium, Blood 3.6 mmol/L (3.5-5.5)
[2024-04-03 11:07] VITALS: BP 132/87
[2024-04-03] MEDS ORDERED: Acetaminophen 500 MG Tab PO PRN (12:20)
[2024-04-03] MEDS ORDERED: Fluticasone 0.05% Nasal Spray PRN (12:20)
[2024-04-03] MEDS ORDERED: Docusate Sodium/Senna 1 Tab PO PRN (14:00)
[2024-04-03] MEDS ORDERED: Ondansetron HCl 2 MG / ML 2ML Vial IV PRN (14:00)
[2024-04-03] MEDS ORDERED: Polyethylene Glycol 3350 17 gm PO PRN (14:00)
[2024-04-03 14:26] VITALS: BP 138/96
--- NOTE | 2024-04-03 16:28 | NUR ---
SHIFT SUMMARY NO ACUTE CHANGES SINCE ADMIT. NAUSEATED X1 AND ZOFRAN EFFECTIVE. HAS DECLINED NEED FOR PAIN MEDICATIONS. 1 ASSIST WHEN OOB. VSS. INDY REG DIET. CALL LIGHT WITHIN REACH.
[2024-04-03] MEDS ORDERED: Primidone 50 MG Tab PO SCH (18:00)
[2024-04-03 20:07] VITALS: BP 143/74
[2024-04-04 04:23] VITALS: BP 126/70
[2024-04-04 05:07] LABS: BASOPHILS ABSOLUTE AUTO 0.06 K/mm3 (0.00-0.23); BASOPHILS PERCENT AUTO 1 % (0-2); EOSINOPHILS ABSOLUTE AUTO 0.28 K/mm3 (0.00-0.68); EOSINOPHILS PERCENT AUTO 4 % (0-6); Hematocrit 28.2 % (37.0-53.0); Hemoglobin 9.6 g/dL (13.5-17.5); IMMATURE GRAN ABSOLUTE AUTO 0.02 K/mm3 (0.00-0.10); IMMATURE GRAN PERCENT AUTO 0 % (0-1); LYMPHOCYTES PERCENT AUTO 20 % (21-46); MONOCYTES ABSOLUTE AUTO 0.96 K/mm3 (0.16-1.47); MONOCYTES PERCENT AUTO 13 % (4-13); Mean Corpuscular HGB 32.7 pg (26.0-34.0); Mean Corpuscular Volume 96 fL (80-100); Mean Platelet Volume 9.6 fL (9.1-12.4); NEUTROPHILS ABSOLUTE AUTO 4.43 K/mm3 (1.96-9.15); NEUTROPHILS PERCENT AUTO 62 % (41-73); Platelet Count 173 K/mm3 (150-400); RDW Coefficient Variation 13.2 % (11.7-14.2); RDW Standard Deviation 46.4 fL (35.1-46.3); Red Blood Cell Count 2.94 M/mm3 (4.30-5.90); White Blood Cell Count 7.15 K/mm3 (4.00-11.30)
[2024-04-04 05:38] LABS: Albumin, Blood 3.3 g/dL (3.4-5.0); Bilirubin, Total 0.7 mg/dL (0.1-1.0); Bun/Creatinine Ratio 14.7 (12.0-20.0); Calcium, Blood 8.1 mg/dL (8.5-10.1); Creatinine, Blood 1.29 mg/dL (0.60-1.20); Globulin, Blood 3.3 g/dL (2.2-4.0); Potassium, Blood 3.9 mmol/L (3.5-5.5); Total Protein, Blood 6.6 g/dL (6.4-8.2)
--- NOTE | 2024-04-04 05:50 | NUR ---
SHIFT SUMMARY PT REMAINS A&O X4, PLEASANT AND COOPERATIVE WITH CARE. NO ACUTE CHANGES. VSS; SBP 120 - 140'S, AFEBRILE, REMAINS ON RA. PT CONTINUES TO C/O OF RUQ PAIN AND TENDERNESS. MEDICATION PER EMAR WITH MODERATE RELIEF. MOST PAIN OCCURING WITH MOVEMENT AND AMBULATION. NO SIGNS OF BLEEDING. PT AMBULATING TO RESTROOM SBA, VOIDING WELL. OF NOTE PT REPORTS NOT HAVING BM FOR "SEVERAL DAYS" INTIALLY STATES MAYBE 3-5 DAYS BUT THEN STATES MAYBE "CLOSER TO OVER A WEEK". PT REPORTS PASSING MINIMAL GAS. DAYSHIFT STARTED BOWEL CARE; EARLY THIS AM PT REPORTS FEELING THE NEED TO PASS BM HOWEVER WAS ONLY ABLE TO HAVE A "SMALL, SOFT LOOSE STOOL". REPORTS NO CONCERNS WITH COLOR. DENIES NOTED BLOOD IN STOOL OR URINE. PT RESTED WELL. CALL LIGHT IN REACH, ABLE TO MAKE NEEDS KNOWN. WILL UPDATE ONCOMING RN.
[2024-04-04 07:28] VITALS: BP 111/70
--- NOTE | 2024-04-04 08:13 | NUR ---
Pt given zofran for c/o nausea.
--- NOTE | 2024-04-04 08:21 | NUR ---
Pt states relief from nausea. Ate some of his breakfast.
[2024-04-04] MEDS ORDERED: Doxazosin Mesylate 2 MG Tab PO SCH (09:00)
[2024-04-04] MEDS ORDERED: Atorvastatin 10 MG Tab PO SCH (09:00)
[2024-04-04] MEDS ORDERED: HydroCHLOROthiazide 25 mg Tab PO SCH (09:00)
[2024-04-04] MEDS ORDERED: Glucosamine Sulfate 500 MG Cap PO SCH (09:00)
[2024-04-04] MEDS ORDERED: Primidone 50 MG Tab PO SCH (09:00)
[2024-04-04] MEDS ORDERED: Misc. Capsule PO SCH (09:00)
[2024-04-04] MEDS ORDERED: Amiodarone HCl 200 MG Tab PO SCH (09:00)
[2024-04-04] MEDS ORDERED: Levothyroxine Sodium 0.088 MG Tab PO SCH (09:00)
[2024-04-04] MEDS ORDERED: DOCUZEN 8.6-501 EACH PO (11:38)
--- NOTE | 2024-04-04 15:12 | NUR ---
1200 The pt has not had any complaints this morning. He is ready to go home. Discharge instructions were reviewed with the patient including information for medications, follow up with PCP and caution with ambulation to avoid falls. He is not to take his eliquis until he follows up with his provider at [facility].
== END 2024-04-04 12:21 | disposition home or self-care (01) ==
LOC: ER 22:56 → SURS 22:57 → ERHOLD 22:57 → SURS 22:57
PROVIDERS: Family Medicine; Student in an Organized Health Care Education/Training Program; Surgery; ADMIT Internal Medicine
DX: S36.112A Contusion of liver, initial encounter (principal); W19.XXXA Unspecified fall, initial encounter; D64.9 Anemia, unspecified; G25.0 Essential tremor; I10 Essential (primary) hypertension; E11.9 Type 2 diabetes mellitus without complications; I48.91 Unspecified atrial fibrillation; E78.5 Hyperlipidemia, unspecified; E03.9 Hypothyroidism, unspecified; I25.10 Atherosclerotic heart disease of native coronary artery without angina pectoris; N40.0 Benign prostatic hyperplasia without lower urinary tract symptoms; Z79.01 Long term (current) use of anticoagulants; Z79.890 Hormone replacement therapy; Z79.899 Other long term (current) drug therapy
CPT/HCPCS: 36415; 36430; 74177; 80053; 82272; 83690; 85025; 96360; 96361; 96374; 96375; 96376; 99285-25; A9270; G0378; J2405; J3010; J7030; Q9967

== ENCOUNTER 2024-09-23 14:52 | Emergency (ER) | payer OTHER ==
[~2024-09-23] VITALS: Ht 177.8 cm; Wt 77.1 kg
[~2024-09-23 14:52] MED LIST changes: +DOCUZEN 8.6-501 EACH PO
[2024-09-23 15:10] VITALS: BP 168/81
[2024-09-23] MEDS ORDERED: Amoxicillin875 MG PO (15:16)
== END 2024-09-23 15:19 | disposition home or self-care (01) ==
LOC: ER 14:52
DX: K11.20 Sialoadenitis, unspecified (principal); I10 Essential (primary) hypertension; E11.9 Type 2 diabetes mellitus without complications; E78.00 Pure hypercholesterolemia, unspecified; Z79.51 Long term (current) use of inhaled steroids; Z79.899 Other long term (current) drug therapy
CPT/HCPCS: 99282